=== PATIENT | female | born 2000 | race Caucasian/White ===

== ENCOUNTER 2021-10-12 22:39 | Observation (INO) | payer BC ==
[~2021-10-12] VITALS: Ht 162.6 cm; Wt 77.6 kg
== END 2021-10-13 00:30 | disposition home or self-care (01) ==
LOC: SPU 22:39
PROVIDERS: ADMIT Obstetrics & Gynecology; ATTEND Obstetrics & Gynecology
DX: O62.9 Abnormality of forces of labor, unspecified (principal); O42.90 Premature rupture of membranes, unspecified as to length of time between rupture and onset of labor, unspecified weeks of gestation; Z3A.00 Weeks of gestation of pregnancy not specified
CPT/HCPCS: 81002; G0378; G0379

== ENCOUNTER 2021-10-31 04:10 | Inpatient (IN) | payer BC, SELFPAY ==
[~2021-10-31] VITALS: Ht 160 cm; Wt 79.4 kg
[2021-10-31] MEDS ORDERED: TERBUTALINE SULFATE 1 MG/ML VIAL SUBCUT ONE (06:00)
[2021-10-31] MEDS ORDERED: NALBUPHINE HCL 10 MG/ML AMP IM PRN (06:00)
[2021-10-31] MEDS ORDERED: NALBUPHINE HCL 10 MG/ML AMP IVP PRN (06:00)
[2021-10-31] MEDS ORDERED: OXYTOCIN/0.9 % SODIUM CHLORIDE 1,000 ML IV SCH ×2 (06:00→13:00)
[2021-10-31] MEDS: LR 1,000 ML IV SCH ×2 (06:48→06:59)
[2021-10-31 07:25] LABS: BASOPHILS % (AUTO) 0.4 % (0.0-2.0); EOSINOPHILS # (AUTO) 0.2 K/uL (0.0-0.4); EOSINOPHILS % (AUTO) 1.4 % (0.0-4.0); HEMATOCRIT 37.9 % (36-48); HEMOGLOBIN 12.4 g/dL (12.0-16.0); LYMPHOCYTES % (AUTO) 24.2 % (20.5-51.5); MEAN CORPUSCULAR HEMOGLOBIN 27 pg (27-31); MEAN CORPUSCULAR HGB CONC 33 % (32-36); MEAN CORPUSCULAR VOLUME 83 fL (79.0-98.0); MONOCYTES # (AUTO) 1.1 K/uL (0.0-1.0); MONOCYTES % (AUTO) 8.8 % (1.7-9.3); NEUTROPHILS # (AUTO) 8.1 K/uL (1.8-7.7); NEUTROPHILS % (AUTO) 65.2 % (40.0-70.0); PLATELET COUNT (AUTO) 377 K/uL (130-430); RED BLOOD CELL COUNT(AUTO) 4.55 MIL/uL (4.2-6.2); RED CELL DISTRIBUTION WIDTH 15.2 % (9.0-15.0); WHITE BLOOD COUNT (AUTO) 12.4 K/uL (4.8-10.8)
[2021-10-31] MEDS ORDERED: FENT2mCg/mL-ROPIVA0.2%/NS EPID 200 ML EP SCH (07:25)
[2021-10-31] MEDS ORDERED: ROPIVACAINE HCL/PF 0.2% 200 ML ONE (07:25)
[2021-10-31] MEDS ORDERED: fentaNYL CITRATE/PF 100 MCG/2 ML AMP ONE (07:25)
[2021-10-31] MEDS ORDERED: ePHEDrine sulfate 50 MG/ML VIAL ONE (09:03)
[2021-10-31] MEDS ORDERED: ePHEDrine sulfate 50 MG/ML VIAL IVP PRN (09:03)
[2021-10-31] MEDS ORDERED: COMMUNICATION ORDER XX ONE (10:00)
[2021-10-31] MEDS ORDERED: WITCH HAZEL LEAF 1 MED.PAD MED.PAD TP PRN (13:00)
[2021-10-31] MEDS ORDERED: ANUSOL 1 EA SUPP.RECT (PREPARATION H) RC PRN (13:00)
[2021-10-31] MEDS ORDERED: DERMOPLAST SPRAY TP PRN (13:00)
[2021-10-31] MEDS ORDERED: LANOLIN 7 GM OINT. TP PRN (13:00)
[2021-10-31] MEDS ORDERED: OXYTOCIN/0.9 % SODIUM CHLORIDE 1,000 ML IV ONE (13:00)
[2021-10-31] MEDS ORDERED: OXYCODONE/ACETAMINOPHEN 5-325 TABLET PO PRN ×2 (13:00)
[2021-10-31] MEDS ORDERED: METHYLERGONOVINE MALEATE 0.2 MG TABLET PO PRN (13:00)
[2021-10-31] MEDS ORDERED: HYDROCORTISONE 0.5% CREAM 28.4 GM CREAM.GM. TP PRN (13:00)
[2021-10-31] MEDS: IBUPROFEN 800 MG TABLET PO PRN ×2 (18:09→23:46)
[2021-10-31] MEDS ORDERED: SENNOSIDES/DOCUSATE SODIUM 1 TAB TABLET(SENOKOT-S) PO SCH (21:00)
[2021-10-31] MEDS ORDERED: TEMAZEPAM 15 MG CAPSULE PO PRN (21:00)
[2021-11-01] MEDS: IBUPROFEN 800 MG TABLET PO PRN ×2 (05:59→12:22)
[2021-11-01] MEDS ORDERED: DOCUSATE SODIUM 100 MG CAPSULE PO SCH (09:00)
[2021-11-01 09:02] LABS: HEMATOCRIT 35.7 % (36-48); HEMOGLOBIN 11.7 g/dL (12.0-16.0)
[2021-11-01] MEDS ORDERED: DIPH-TET-PERTUS Vaccine 0.5 ML VIAL (ADACEL) I.M. ONE (13:45)
[2021-11-03 19:06] LABS: FTA-Ab (T PALLIDUM) Non Reactive (Non Reactive)
== END 2021-11-01 14:21 | disposition home or self-care (01) | DRG 560 ==
LOC: SPU 04:10 → OBSVTOIN 05:43
PROVIDERS: ADMIT Obstetrics & Gynecology; ATTEND Obstetrics & Gynecology
PROC: 10D07Z6 Extraction of Products of Conception, Vacuum, Via Natural or Artificial Opening (ICD-10-PCS; principal; 2021-10-31)
PROC: 10907ZC Drainage of Amniotic Fluid, Therapeutic from Products of Conception, Via Natural or Artificial Opening (ICD-10-PCS; 2021-10-31)
PROC: 3E0R3BZ Introduction of Anesthetic Agent into Spinal Canal, Percutaneous Approach (ICD-10-PCS; 2021-10-31)
PROC: 00HU33Z Insertion of Infusion Device into Spinal Canal, Percutaneous Approach (ICD-10-PCS; 2021-10-31)
PROC: 0HQ9XZZ Repair Perineum Skin, External Approach (ICD-10-PCS; 2021-10-31)
DX: O77.0 Labor and delivery complicated by meconium in amniotic fluid (principal); Z37.0 Single live birth; O70.0 First degree perineal laceration during delivery; Z20.822 Contact with and (suspected) exposure to COVID-19; Z3A.39 39 weeks gestation of pregnancy
CPT/HCPCS: 36415; 85018; 85025; 86592; 86780; 86886; 86900; 86901; 90715; G0378; J2590; J3010

== ENCOUNTER 2023-08-04 00:44 | Emergency (ER) | payer BC ==
[~2023-08-04] VITALS: Ht 160 cm; Wt 63.5 kg
[2023-08-04 00:49] VITALS: BP_SYST 120; PULSE 130; RESP 22; TEMP 100.6; O2SAT 97
[2023-08-04 01:44] LABS: COVID19 ANTIGEN SOFIA FIA NEGATIVE (NEGATIVE)
[2023-08-04 01:45] LABS: INFLUENZA TYPE B NEGATIVE (NEGATIVE)
[2023-08-04 01:47] LABS: INFLUENZA TYPE A POSITIVE (NEGATIVE)
[2023-08-04] MEDS ORDERED: PHEDM120 PO (02:09)
[2023-08-04] MEDS ORDERED: IBUP-1969 PO (02:09)
[2023-08-04] MEDS ORDERED: OSEL75CA PO (02:09)
[2023-08-04] MEDS ORDERED: KETOROLAC TROMETHAMINE 60 MG/2 ML VIAL IM ONE (02:15)
[2023-08-04 02:16] LABS: BILIRUBIN,URINE NEGATIVE (NEGATIVE); BLOOD, URINE 1+ (NEGATIVE); COLOR,URINE YELLOW (YELLOW); GLUCOSE,URINE NEGATIVE (NEGATIVE); KETONES,URINE TRACE (NEGATIVE); LEUKOCYTE ESTERASE ,URINE NEGATIVE (NEGATIVE); NITRITE, URINE NEGATIVE (NEGATIVE); PROTEIN URINE TRACE (NEGATIVE); UROBILINOGEN,URINE 0.2 (0.2-1.0)
[2023-08-04 02:22] VITALS: BP_SYST 120; PULSE 130; RESP 22; TEMP 100.6; O2SAT 97
[2023-08-04 02:32] LABS: CLARITY/URINE SLIGHTLY CLOUDY (CLEAR)
[2023-08-04 02:34] LABS: WBC,URINE 0-3 /HPF (0-3)
[2023-08-04 02:35] LABS: BACTERIA,URINE MODERATE /HPF (None Seen)
== END 2023-08-04 02:22 | disposition home or self-care (01) ==
LOC: SED 00:44
DX: J10.1 Influenza due to other identified influenza virus with other respiratory manifestations (principal); B97.89 Other viral agents as the cause of diseases classified elsewhere; R51.9 Headache, unspecified; M79.10 Myalgia, unspecified site; R50.9 Fever, unspecified; Z88.1 Allergy status to other antibiotic agents; Z79.899 Other long term (current) drug therapy; Z20.822 Contact with and (suspected) exposure to COVID-19
CPT/HCPCS: 99284; 71045; 87426; 81001; 36415; 81025; 96372; 87804 ×2; 81000; 81015; J1885

== ENCOUNTER 2024-04-25 12:52 | Emergency (ER) | payer BC ==
[~2024-04-25] VITALS: Ht 162.6 cm; Wt 72.6 kg
[~2024-04-25 12:52] MED LIST: IBUP-1969 PO; OSEL75CA PO; PHEDM120 PO
[2024-04-25 13:24] VITALS: BP_SYST 140; PULSE 86; RESP 18; TEMP 98.2; O2SAT 99
[2024-04-25] MEDS ORDERED: NEU100 PO (15:13)
[2024-04-25 15:32] VITALS: BP_SYST 136; PULSE 72; RESP 16; TEMP 98.2; O2SAT 99
== END 2024-04-25 15:29 | disposition home or self-care (01) ==
LOC: SED 12:52
DX: G62.9 Polyneuropathy, unspecified (principal); Z88.1 Allergy status to other antibiotic agents; Z79.899 Other long term (current) drug therapy; Z79.2 Long term (current) use of antibiotics
CPT/HCPCS: 99283